=== PATIENT | female | born 1995 | race Caucasian/White ===

== ENCOUNTER 2022-10-19 08:59 | Outpatient (OUT) | payer BC, MEDICAID, SELFPAY ==
--- NOTE | 2022-10-19 09:01 | US_ITS ---
[address] [address] Patient Name: RICHARD CRAWFORD MRN: [id number] date: 1995 Sex: F Assigned Patient Location: US Current Patient Location: US Accession/Order Number: [id number] Exam Date: 10/19/2022 09:01 Report Date: 10/19/2022 20:49 At the request of: JAMAL PHAN Procedure: US OB transvaginal EXAM: US OB incomplete anatomy, US OB transvaginal HISTORY: INCOMPLETE ANATOMY COMPARISON: 09/21/2022. TECHNIQUE: Transabdominal and transvaginal FINDINGS: Limited by maternal body habitus Cervix: Closed, 2.9 cm Heart rate: 155 bpm Clinical age: 24 weeks 2 days Clinical JEANNE: 02/06/2023 Normal observed anatomy: Three-vessel cord, arms, diaphragm, umbilical arteries Suboptimal visualization: Hard palate IMPRESSION: Suboptimal visualization of the hard palate, otherwise normal observed anatomy Electronically authenticated by: ALTAGRACIA RAJPUT Date: 10/19/2022 20:49
--- NOTE | 2022-10-19 09:05 | US_ITS ---
[address] [address] Patient Name: RICHARD CRAWFORD MRN: [id number] date: 1995 Sex: F Assigned Patient Location: Current Patient Location: US Accession/Order Number: [id number] Exam Date: 10/19/2022 09:04 Report Date: 10/19/2022 20:49 At the request of: JAMAL PHAN Procedure: US OB incomplete anatomy EXAM: US OB incomplete anatomy, US OB transvaginal HISTORY: INCOMPLETE ANATOMY COMPARISON: 09/21/2022. TECHNIQUE: Transabdominal and transvaginal FINDINGS: Limited by maternal body habitus Cervix: Closed, 2.9 cm Heart rate: 155 bpm Clinical age: 24 weeks 2 days Clinical JEANNE: 02/06/2023 Normal observed anatomy: Three-vessel cord, arms, diaphragm, umbilical arteries Suboptimal visualization: Hard palate IMPRESSION: Suboptimal visualization of the hard palate, otherwise normal observed anatomy Electronically authenticated by: ALTAGRACIA RAJPUT Date: 10/19/2022 20:49
== END 2022-10-19 09:00 | disposition home or self-care (01) ==
LOC: US 08:59
PROVIDERS: Visit Provider Obstetrics & Gynecology
DX: Z36.2 Encounter for other antenatal screening follow-up (principal)
CPT/HCPCS: 76815; 76817

== ENCOUNTER 2022-10-27 07:47 | Outpatient (OUT) | payer BC, MEDICAID, SELFPAY ==
[2022-10-27 10:38] LABS: Glucose 1 Hour 126 mg/dL
== END 2022-10-27 07:48 | disposition home or self-care (01) ==
LOC: LAB 07:47
PROVIDERS: Visit Provider Physician Assistant
DX: Z34.90 Encounter for supervision of normal pregnancy, unspecified, unspecified trimester (principal)
CPT/HCPCS: 36415; 82950

== ENCOUNTER 2022-11-02 08:42 | Outpatient (OUT) | payer BC, MEDICAID, SELFPAY ==
--- NOTE | 2022-11-02 08:46 | US_ITS ---
The [address] [address] Patient Name: RICHARD CRAWFORD MRN: [id number] date: 1995 Sex: F Assigned Patient Location: US Current Patient Location: Accession/Order Number: [id number] Exam Date: 11/02/2022 08:47 Report Date: 11/02/2022 09:24 At the request of: JAMAL PHAN Procedure: US OB cervical length Ultrasound obstetrical pelvis, non-obstetric CLINICAL: SHORT CERVIX TECHNIQUE: Transvaginal obstetrical pelvic ultrasound was performed. FINDINGS: Comparison: 10/19/2022 and 09/21/2022 The functional cervical length is 1.9 cm. There is funneling with the funnel width at 0 0.5 cm, and funnel length at 0.9 cm resulting in 32% funneling. Appearance of cervix is similar to previous ultrasound 10/19/2022. US/US OB cervical length IMPRESSION: 1. Functional cervical length 1.9 cm. 2. Funneling of cervix, with funnel width at 0.5 cm and funnel length at 0.9 cm, resulting in 32% funneling. Appearance of cervix is similar to previous ultrasound 10/19/2022. Electronically authenticated by: ROLY ARMENTA Date: 11/02/2022 09:24
== END 2022-11-02 08:43 | disposition home or self-care (01) ==
LOC: US 08:42
PROVIDERS: Visit Provider Obstetrics & Gynecology
DX: Z03.75 Encounter for suspected cervical shortening ruled out (principal)
CPT/HCPCS: 76817